=== PATIENT | female | born 1960 | race African-American/Black ===

== ENCOUNTER 2021-11-19 14:55 | Inpatient (IN) | payer OTHER ==
[2021-11-19] MEDS ORDERED: oxyCODONE HCL 5 MG TABLET PO PRN ×2 (18:04→18:12)
[2021-11-19] MEDS ORDERED: ACETAMINOPHEN 325 MG TABLET (FP) PO PRN ×2 (18:04→18:12)
[2021-11-19] MEDS ORDERED: ONDANSETRON 4 MG/2 ML VIAL IVPUSH PRN (18:07)
[2021-11-19 18:39] LABS: BASO % 0.3 % (0-2.0); EOS % 8.2 % (0-4.5); HEMATOCRIT 29.8 % (32.4-45.2); HEMOGLOBIN 9.7 GM/dL (10.7-15.3); LYMPH % 24.2 % (8-40); MCH 28.7 pg (25.7-33.7); MCHC 32.4 g/dl (32.0-36.0); MEAN CELL VOLUME 88.7 fl (80-96); MEAN PLT VOLUME 8.9 fl (7.5-11.1); MONO % 10.1 % (3.8-10.2); NEUT % 57.2 % (42.8-82.8); PLATELET COUNT 313 10^3/uL (134-434); RBC 3.36 M/mm3 (3.60-5.2); RDW 16.6 % (11.6-15.6); WHITE BLOOD COUNT 6.9 K/mm3 (4.0-10.0)
[2021-11-19 18:48] LABS: INR 1.17 (0.83-1.09); PROTHROMBIN TIME (PATIENT) 13.5 SEC (9.7-13.0)
[2021-11-19 18:51] LABS: ACTIVATED PTT 26.7 SECONDS (25.2-36.5)
[2021-11-19 18:58] LABS: ALBUMIN 2.9 g/dl (3.4-5.0); BLOOD UREA NITROGEN 14.8 mg/dL (7-18); CALCIUM 9.1 mg/dL (8.5-10.1)
[2021-11-19 19:01] LABS: CREATININE 1.5 mg/dL (0.55-1.3)
[2021-11-19 19:03] LABS: BILIRUBIN,TOTAL 0.3 mg/dL (0.2-1); TOT PROT 7.2 g/dl (6.4-8.2)
[2021-11-19] MEDS ORDERED: LACTATED RINGERS SOLUTION 1,000 ML/1,000 ML INFUS.BAG IV SCH (19:45)
[2021-11-19] MEDS ORDERED: ROSUVASTATIN CA 20 MG TABLET ONE (21:31)
[2021-11-19] MEDS ORDERED: PREGABALIN 50 MG CAPSULE ONE (21:31)
[2021-11-19] MEDS ORDERED: METOPROLOL TARTRATE 25 MG TABLET (FP) ONE (21:31)
[2021-11-19] MEDS ORDERED: CYCLOBENZAPRINE HCL 10 MG TABLET (FP) ONE (21:31)
[2021-11-19] MEDS ORDERED: PREGABALIN 100 MG CAPSULE ONE (21:31)
[2021-11-19] MEDS ORDERED: oxyCODONE HCL 5 MG TABLET ONE (21:32)
[2021-11-19] MEDS: oxyCODONE HCL 5 MG TABLET PO PRN (21:40)
[2021-11-19] MEDS: ROSUVASTATIN CA 10 MG TABLET PO SCH (21:48)
[2021-11-19] MEDS: PREGABALIN 50 MG CAPSULE PO SCH (21:49)
[2021-11-19] MEDS: CYCLOBENZAPRINE HCL 10 MG TABLET (FP) PO SCH (21:49)
[2021-11-19] MEDS: METOPROLOL TARTRATE 25 MG TABLET (FP) PO SCH (21:49)
[2021-11-19 22:17] LABS: EPI CELLS >36 /uL (0-25.1); HYALINE CASTS 9 /uL (0-3.1); URINE APPEARANCE CLOUDY; URINE BACTERIA 860 /uL (0-1359); URINE BILIRUBIN 1+ (NEGATIVE); URINE COLOR DK YELLOW; URINE GLUCOSE (UA) NEGATIVE (NEGATIVE); URINE KETONE TRACE (NEGATIVE); URINE LEUK ESTERASE 2+ (NEGATIVE); URINE NITRITE NEGATIVE (NEGATIVE); URINE PROTEIN TRACE (NEGATIVE); URINE WBC 350 /uL (0-25.8)
[2021-11-19 22:37] LABS: URINE CRYSTALS NONE SEEN /hpf; URINE RBC 25.3 /uL (0-23.9)
[2021-11-20 01:59] VITALS: BMI 34.1
[2021-11-20] MEDS ORDERED: ROCURONIUM BROMIDE 50 MG/5 ML SYRINGE ONE (07:05)
[2021-11-20] MEDS ORDERED: ONDANSETRON 4 MG/2 ML VIAL ONE (07:05)
[2021-11-20] MEDS ORDERED: PROPOFOL 20 ML ONE (07:05)
[2021-11-20] MEDS ORDERED: SUCCINYLCHOLINE CHLORIDE 200 MG/10 ML SYRINGE ONE (07:05)
[2021-11-20] MEDS ORDERED: LACTATED RINGERS SOLUTION 1,000 ML IV SCH (07:30)
[2021-11-20] MEDS ORDERED: METOPROLOL TARTRATE 25 MG TABLET (FP) PO ONE (08:01)
[2021-11-20] MEDS ORDERED: ACETAMINOPHEN INJECTION 100 ML IVPB ONE (08:02)
[2021-11-20] MEDS ORDERED: MIDAZOLAM HCL 2 MG/2 ML SINGLE DOSE VIAL ONE (08:05)
[2021-11-20] MEDS ORDERED: ceFAZolin SODIUM 1 GM VIAL ONE ×2 (08:08)
[2021-11-20] MEDS ORDERED: DEXAMETHASONE SOD PHOSPHATE 4 MG/1 ML VIAL ONE (08:08)
[2021-11-20] MEDS ORDERED: HYDROmorphone HCl 2 MG/ML VIAL ONE (09:21)
[2021-11-20] MEDS ORDERED: TRANEXAMIC ACID 1000 MG/10 ML VIAL ONE ×2 (09:30→09:33)
[2021-11-20] MEDS ORDERED: VANCOMYCIN 1,000 MG VIAL (RESTRICTED TO ID ONLY) ONE (09:39)
[2021-11-20] MEDS ORDERED: VANCOMYCIN 1 GM in NS (PRE-DOCKED) 1,000 MG/250 ML IVPB ONE (09:43)
[2021-11-20] MEDS ORDERED: ceFAZolin SODIUM 1 GM VIAL IVPB ONE (09:43)
[2021-11-20] MEDS ORDERED: GLYCOPYRROLATE 0.2 MG/1 ML VIAL ONE ×2 (09:48)
[2021-11-20] MEDS ORDERED: OXYCODONE MYRISTATE 9 MG PO SCH ×2 (11:30→23:30)
[2021-11-20] MEDS: LACTATED RINGERS SOLUTION 1,000 ML IV SCH (12:35)
[2021-11-20] MEDS: CEFAZOLIN SODIUM 2 GM in DEXTROSE 5%-WATER 100 ML IVPB SCH ×2 (14:23→22:22)
[2021-11-20] MEDS: CYCLOBENZAPRINE HCL 10 MG TABLET (FP) PO SCH ×3 (16:44→21:08)
[2021-11-20] MEDS: METOPROLOL TARTRATE 25 MG TABLET (FP) PO SCH ×3 (16:44→21:08)
[2021-11-20] MEDS: PREGABALIN 50 MG CAPSULE PO SCH ×3 (16:45→21:08)
[2021-11-20] MEDS: ACETAMINOPHEN 1000 MG/100 ML BAG IVPB PRN (20:53)
[2021-11-20] MEDS: ROSUVASTATIN CA 10 MG TABLET PO SCH ×2 (20:54→21:08)
[2021-11-21] MEDS: oxyCODONE HCL 5 MG TABLET PO PRN ×4 (01:56→22:23)
[2021-11-21] MEDS: CEFAZOLIN SODIUM 2 GM in DEXTROSE 5%-WATER 100 ML IVPB SCH (02:03)
[2021-11-21] MEDS: ACETAMINOPHEN 1000 MG/100 ML BAG IVPB PRN (06:17)
[2021-11-21] MEDS: LEVOTHYROXINE NA 100 MCG TABLET (FP) PO SCH (06:17)
[2021-11-21 08:02] LABS: BASO % 0.3 % (0-2.0); EOS % 2.1 % (0-4.5); HEMATOCRIT 23.9 % (32.4-45.2); HEMOGLOBIN 7.6 GM/dL (10.7-15.3); LYMPH % 28.3 % (8-40); MCH 28.2 pg (25.7-33.7); MCHC 31.9 g/dl (32.0-36.0); MEAN CELL VOLUME 88.2 fl (80-96); MEAN PLT VOLUME 8.7 fl (7.5-11.1); MONO % 10.8 % (3.8-10.2); NEUT % 58.5 % (42.8-82.8); PLATELET COUNT 232 10^3/uL (134-434); RBC 2.71 M/mm3 (3.60-5.2); RDW 16.2 % (11.6-15.6); WHITE BLOOD COUNT 5.6 K/mm3 (4.0-10.0)
[2021-11-21 08:23] LABS: CALCIUM 8.5 mg/dL (8.5-10.1)
[2021-11-21] MEDS: PREGABALIN 50 MG CAPSULE PO SCH ×2 (09:13→22:00)
[2021-11-21] MEDS: METOPROLOL TARTRATE 25 MG TABLET (FP) PO SCH ×2 (09:15→22:34)
[2021-11-21] MEDS: LACTATED RINGERS SOLUTION 1,000 ML IV SCH ×4 (09:51→18:42)
[2021-11-21] MEDS: CYCLOBENZAPRINE HCL 10 MG TABLET (FP) PO SCH ×2 (10:36→22:00)
[2021-11-21] MEDS ORDERED: LACTATED RINGERS SOLUTION 1,000 ML/1,000 ML INFUS.BAG IV SCH (22:00)
[2021-11-21] MEDS: ROSUVASTATIN CA 10 MG TABLET PO SCH (22:01)
[2021-11-22] MEDS: LEVOTHYROXINE NA 100 MCG TABLET (FP) PO SCH (06:43)
[2021-11-22] MEDS: oxyCODONE HCL 5 MG TABLET PO PRN ×2 (07:10→14:14)
[2021-11-22 09:21] LABS: BASO % 0.6 % (0-2.0); HEMATOCRIT 24.9 % (32.4-45.2); HEMOGLOBIN 8.2 GM/dL (10.7-15.3); LYMPH % 33.7 % (8-40); MCH 29.1 pg (25.7-33.7); MCHC 32.9 g/dl (32.0-36.0); MEAN CELL VOLUME 88.4 fl (80-96); MEAN PLT VOLUME 8.5 fl (7.5-11.1); MONO % 9.2 % (3.8-10.2); NEUT % 49.5 % (42.8-82.8); PLATELET COUNT 255 10^3/uL (134-434); RBC 2.82 M/mm3 (3.60-5.2); RDW 16.1 % (11.6-15.6); WHITE BLOOD COUNT 7.2 K/mm3 (4.0-10.0)
[2021-11-22 09:45] LABS: CALCIUM 8.8 mg/dL (8.5-10.1)
[2021-11-22 09:46] LABS: BLOOD UREA NITROGEN 11.9 mg/dL (7-18)
[2021-11-22 09:50] LABS: CREATININE 0.8 mg/dL (0.55-1.3)
[2021-11-22] MEDS: PREGABALIN 50 MG CAPSULE PO SCH ×2 (11:22→22:04)
[2021-11-22] MEDS: CYCLOBENZAPRINE HCL 10 MG TABLET (FP) PO SCH ×2 (11:22→22:04)
[2021-11-22] MEDS: METOPROLOL TARTRATE 25 MG TABLET (FP) PO SCH ×2 (11:23→22:03)
[2021-11-22] MEDS ORDERED: PATIENT'S OWN MEDICATION (NON-FORMULARY) (Linaclotide [Linzess] 290 MCG Capsule) PO SCH (11:45)
[2021-11-22] MEDS: LISINOPRIL 20 MG TABLET PO SCH (14:04)
[2021-11-22] MEDS: FUROSEMIDE 40 MG TABLET (FP) PO SCH (14:05)
[2021-11-22] MEDS: SPIRONOLACTONE 25 MG TABLET PO SCH (14:05)
[2021-11-22] MEDS: ROSUVASTATIN CA 10 MG TABLET PO SCH (22:04)
[2021-11-23] MEDS: oxyCODONE HCL 5 MG TABLET PO PRN ×3 (01:46→18:07)
[2021-11-23] MEDS: LEVOTHYROXINE NA 100 MCG TABLET (FP) PO SCH (06:43)
[2021-11-23 11:34] LABS: HEMATOCRIT 26.5 % (32.4-45.2); HEMOGLOBIN 8.8 GM/dL (10.7-15.3); MCH 29.3 pg (25.7-33.7); MEAN CELL VOLUME 88.6 fl (80-96); MEAN PLT VOLUME 8.5 fl (7.5-11.1); PLATELET COUNT 281 10^3/uL (134-434); RBC 2.99 M/mm3 (3.60-5.2); RDW 16.9 % (11.6-15.6); WHITE BLOOD COUNT 7.2 K/mm3 (4.0-10.0)
[2021-11-23 11:45] LABS: CALCIUM 9.1 mg/dL (8.5-10.1)
[2021-11-23 11:46] LABS: BLOOD UREA NITROGEN 8.4 mg/dL (7-18)
[2021-11-23 11:49] LABS: CREATININE 0.7 mg/dL (0.55-1.3)
[2021-11-23] MEDS: SPIRONOLACTONE 25 MG TABLET PO SCH (11:50)
[2021-11-23] MEDS: FUROSEMIDE 40 MG TABLET (FP) PO SCH (11:51)
[2021-11-23] MEDS: METOPROLOL TARTRATE 25 MG TABLET (FP) PO SCH ×3 (11:51→22:39)
[2021-11-23] MEDS: PREGABALIN 50 MG CAPSULE PO SCH ×2 (11:51→22:39)
[2021-11-23] MEDS: CYCLOBENZAPRINE HCL 10 MG TABLET (FP) PO SCH ×2 (11:51→22:39)
[2021-11-23] MEDS: LISINOPRIL 20 MG TABLET PO SCH (11:52)
[2021-11-23] MEDS ORDERED: LORazepam 2 MG TABLET PO ONE (12:00)
[2021-11-23] MEDS ORDERED: LORazepam 1 MG TABLET PO ONE (13:30)
[2021-11-23] MEDS: CEFAZOLIN SODIUM 2 GM in DEXTROSE 5%-WATER 100 ML IVPB SCH ×3 (14:02→22:39)
[2021-11-23] MEDS: ROSUVASTATIN CA 10 MG TABLET PO SCH (22:39)
[2021-11-24] MEDS: CEFAZOLIN SODIUM 2 GM in DEXTROSE 5%-WATER 100 ML IVPB SCH ×5 (03:02→22:12)
[2021-11-24] MEDS: LEVOTHYROXINE NA 100 MCG TABLET (FP) PO SCH (06:33)
[2021-11-24] MEDS: oxyCODONE HCL 5 MG TABLET PO PRN ×2 (09:15→21:28)
[2021-11-24] MEDS: PREGABALIN 50 MG CAPSULE PO SCH ×2 (09:18→22:12)
[2021-11-24] MEDS: LISINOPRIL 20 MG TABLET PO SCH (09:18)
[2021-11-24] MEDS: FUROSEMIDE 40 MG TABLET (FP) PO SCH (09:18)
[2021-11-24] MEDS: METOPROLOL TARTRATE 25 MG TABLET (FP) PO SCH ×2 (09:19→22:13)
[2021-11-24] MEDS: SPIRONOLACTONE 25 MG TABLET PO SCH (09:19)
[2021-11-24] MEDS: CYCLOBENZAPRINE HCL 10 MG TABLET (FP) PO SCH ×2 (09:19→22:12)
[2021-11-24 10:46] LABS: HEMATOCRIT 25.4 % (32.4-45.2); HEMOGLOBIN 8.3 GM/dL (10.7-15.3); MCH 28.8 pg (25.7-33.7); MCHC 32.7 g/dl (32.0-36.0); MEAN CELL VOLUME 87.9 fl (80-96); MEAN PLT VOLUME 9.2 fl (7.5-11.1); PLATELET COUNT 272 10^3/uL (134-434); RBC 2.89 M/mm3 (3.60-5.2); RDW 16.6 % (11.6-15.6); WHITE BLOOD COUNT 7.3 K/mm3 (4.0-10.0)
[2021-11-24 11:04] LABS: ALBUMIN 2.6 g/dl (3.4-5.0); BLOOD UREA NITROGEN 9.8 mg/dL (7-18); MAGNESIUM 2.3 mg/dL (1.8-2.4)
[2021-11-24 11:07] LABS: CREATININE 0.7 mg/dL (0.55-1.3); PHOSPHOROUS 3.9 mg/dL (2.5-4.9)
[2021-11-24 11:10] LABS: BILIRUBIN,TOTAL 0.4 mg/dL (0.2-1); TOT PROT 6.5 g/dl (6.4-8.2)
[2021-11-24] MEDS ORDERED: ACETAMINOPHEN 325 MG TABLET (FP) PO PRN (14:15)
[2021-11-24] MEDS ORDERED: MIDAZOLAM HCL 2 MG/2 ML SINGLE DOSE VIAL ONE (14:55)
[2021-11-24] MEDS ORDERED: ONDANSETRON 4 MG/2 ML VIAL IVPUSH PRN (15:07)
[2021-11-24] MEDS ORDERED: ROCURONIUM BROMIDE 50 MG/5 ML SYRINGE ONE (15:13)
[2021-11-24] MEDS ORDERED: LACTATED RINGERS SOLUTION 1,000 ML IV SCH (15:15)
[2021-11-24] MEDS: ROSUVASTATIN CA 10 MG TABLET PO SCH (22:12)
[2021-11-25] MEDS: CEFAZOLIN SODIUM 2 GM in DEXTROSE 5%-WATER 100 ML IVPB SCH ×4 (04:09→21:06)
[2021-11-25] MEDS: LEVOTHYROXINE NA 100 MCG TABLET (FP) PO SCH (06:07)
[2021-11-25 11:33] LABS: HEMATOCRIT 28.3 % (32.4-45.2); MCH 28.4 pg (25.7-33.7); MCHC 31.8 g/dl (32.0-36.0); MEAN CELL VOLUME 89.3 fl (80-96); MEAN PLT VOLUME 9.3 fl (7.5-11.1); PLATELET COUNT 291 10^3/uL (134-434); RBC 3.17 M/mm3 (3.60-5.2); RDW 16.2 % (11.6-15.6); WHITE BLOOD COUNT 7.5 K/mm3 (4.0-10.0)
[2021-11-25] MEDS: METOPROLOL TARTRATE 25 MG TABLET (FP) PO SCH ×2 (12:04→21:52)
[2021-11-25] MEDS: PREGABALIN 50 MG CAPSULE PO SCH ×2 (12:04→21:52)
[2021-11-25] MEDS: CYCLOBENZAPRINE HCL 10 MG TABLET (FP) PO SCH ×2 (12:04→21:52)
[2021-11-25] MEDS: SPIRONOLACTONE 25 MG TABLET PO SCH (12:05)
[2021-11-25] MEDS: LISINOPRIL 20 MG TABLET PO SCH (12:05)
[2021-11-25 12:06] LABS: ALBUMIN 2.8 g/dl (3.4-5.0); BLOOD UREA NITROGEN 10.8 mg/dL (7-18); CALCIUM 9.2 mg/dL (8.5-10.1)
[2021-11-25 12:09] LABS: CREATININE 0.8 mg/dL (0.55-1.3)
[2021-11-25 12:11] LABS: BILIRUBIN,TOTAL 0.4 mg/dL (0.2-1); TOT PROT 6.8 g/dl (6.4-8.2)
[2021-11-25] MEDS: oxyCODONE HCL 5 MG TABLET PO PRN (16:07)
[2021-11-25] MEDS ORDERED: SPIRONOLACTONE 25 MG TABLET PO SCH (17:30)
[2021-11-25] MEDS ORDERED: LISINOPRIL 20 MG TABLET PO SCH (17:31)
[2021-11-25 17:51] LABS: N-TERMINAL BNP 170.5 pg/ml (5-125)
[2021-11-25] MEDS: ROSUVASTATIN CA 10 MG TABLET PO SCH (21:52)
[2021-11-26] MEDS: CEFAZOLIN SODIUM 2 GM in DEXTROSE 5%-WATER 100 ML IVPB SCH ×4 (02:50→21:40)
[2021-11-26] MEDS: LEVOTHYROXINE NA 100 MCG TABLET (FP) PO SCH (06:50)
[2021-11-26 10:22] LABS: HEMATOCRIT 25.3 % (32.4-45.2); HEMOGLOBIN 8.3 GM/dL (10.7-15.3); MCH 29.2 pg (25.7-33.7); MCHC 32.8 g/dl (32.0-36.0); MEAN CELL VOLUME 88.9 fl (80-96); PLATELET COUNT 272 10^3/uL (134-434); RBC 2.84 M/mm3 (3.60-5.2); RDW 16.7 % (11.6-15.6); WHITE BLOOD COUNT 7.5 K/mm3 (4.0-10.0)
[2021-11-26 10:46] LABS: CALCIUM 8.9 mg/dL (8.5-10.1)
[2021-11-26 10:47] LABS: ALBUMIN 2.7 g/dl (3.4-5.0); BLOOD UREA NITROGEN 14.8 mg/dL (7-18)
[2021-11-26 10:50] LABS: CREATININE 1.1 mg/dL (0.55-1.3)
[2021-11-26 10:51] LABS: BILIRUBIN,TOTAL 0.4 mg/dL (0.2-1); TOT PROT 6.5 g/dl (6.4-8.2)
[2021-11-26] MEDS ORDERED: DEXTROSE 5%-NORMAL SALINE 1,000 ML IV SCH ×2 (12:00→19:14)
[2021-11-26] MEDS: CYCLOBENZAPRINE HCL 10 MG TABLET (FP) PO SCH ×2 (12:34→21:40)
[2021-11-26] MEDS: METOPROLOL TARTRATE 25 MG TABLET (FP) PO SCH ×2 (12:35→21:40)
[2021-11-26] MEDS: PREGABALIN 50 MG CAPSULE PO SCH ×2 (12:35→21:40)
[2021-11-26] MEDS ORDERED: PROPOFOL 40 ML ONE (15:42)
[2021-11-26] MEDS ORDERED: SUCCINYLCHOLINE CHLORIDE 200 MG/10 ML SYRINGE ONE (15:43)
[2021-11-26] MEDS ORDERED: MIDAZOLAM HCL 2 MG/2 ML SINGLE DOSE VIAL ONE (17:14)
[2021-11-26] MEDS ORDERED: ceFAZolin SODIUM 1 GM VIAL IVPB ONE (17:35)
[2021-11-26] MEDS ORDERED: ROCURONIUM BROMIDE 50 MG/5 ML SYRINGE ONE (17:38)
[2021-11-26] MEDS ORDERED: HYDROmorphone HCl 2 MG/ML VIAL ONE (18:21)
[2021-11-26] MEDS ORDERED: ONDANSETRON 4 MG/2 ML VIAL IVPUSH PRN ×2 (19:05→19:14)
[2021-11-26] MEDS ORDERED: oxyCODONE HCL 5 MG TABLET PO PRN ×2 (19:05→19:14)
[2021-11-26] MEDS ORDERED: ACETAMINOPHEN 325 MG TABLET (FP) PO PRN (19:14)
[2021-11-26] MEDS ORDERED: LACTATED RINGERS SOLUTION 1,000 ML IV SCH (19:15)
[2021-11-26] MEDS ORDERED: ROSUVASTATIN CA 10 MG TABLET PO SCH (22:00)
[2021-11-27 01:47] VITALS: RESP 18
[2021-11-27] MEDS: CEFAZOLIN SODIUM 2 GM in DEXTROSE 5%-WATER 100 ML IVPB SCH ×3 (02:57→14:35)
[2021-11-27] MEDS ORDERED: LEVOTHYROXINE NA 100 MCG TABLET (FP) PO SCH (07:00)
[2021-11-27] MEDS ORDERED: SIMETHICONE 80 MG TAB.CHEW (FP) PO PRN (08:50)
[2021-11-27] MEDS: POLYETHYLENE GLYCOL (HEALTHYLAX) 3350 17 GM PACKET PO SCH ×2 (09:04→09:44)
[2021-11-27 09:36] LABS: HEMATOCRIT 28.3 % (32.4-45.2); HEMOGLOBIN 9.1 GM/dL (10.7-15.3); MCH 28.5 pg (25.7-33.7); MCHC 31.9 g/dl (32.0-36.0); MEAN CELL VOLUME 89.2 fl (80-96); MEAN PLT VOLUME 8.8 fl (7.5-11.1); PLATELET COUNT 365 10^3/uL (134-434); RBC 3.18 M/mm3 (3.60-5.2); WHITE BLOOD COUNT 6.4 K/mm3 (4.0-10.0)
[2021-11-27] MEDS: PREGABALIN 50 MG CAPSULE PO SCH (09:43)
[2021-11-27] MEDS: CYCLOBENZAPRINE HCL 10 MG TABLET (FP) PO SCH (09:43)
[2021-11-27] MEDS ORDERED: SPIRONOLACTONE 25 MG TABLET PO SCH (10:00)
[2021-11-27] MEDS ORDERED: LISINOPRIL 20 MG TABLET PO SCH (10:00)
[2021-11-27 10:09] LABS: CALCIUM 9.2 mg/dL (8.5-10.1)
[2021-11-27 10:11] LABS: ALBUMIN 2.8 g/dl (3.4-5.0); BLOOD UREA NITROGEN 11.6 mg/dL (7-18)
[2021-11-27 10:15] LABS: CREATININE 0.9 mg/dL (0.55-1.3); TOT PROT 7.2 g/dl (6.4-8.2)
[2021-11-27 10:17] LABS: BILIRUBIN,TOTAL 0.4 mg/dL (0.2-1)
[2021-11-27] MEDS: METOPROLOL TARTRATE 25 MG TABLET (FP) PO SCH (10:53)
[2021-11-27 15:00] VITALS: BP 129/76; PULSE 84; TEMP 97.3
== END 2021-11-27 18:38 | disposition home or self-care (01) | DRG 902 ==
LOC: JOR 14:55 → JERBED 16:21 → UNDOADMOB 16:21 → JASUSAT 18:06 → UNDOADMIN 18:06 → JERBED 18:06 → J5S 23:25 → JASUSAT 11-20 15:24 → J5S 11-20 15:25
PROVIDERS: ADMIT Orthopaedic Surgery Adult Reconstructive Orthopaedic Surgery; ATTEND Internal Medicine
PROC: 0J9700Z Drainage of Back Subcutaneous Tissue and Fascia with Drainage Device, Open Approach (ICD-10-PCS; principal; 2021-11-20 08:00)
PROC: 0JB70ZZ Excision of Back Subcutaneous Tissue and Fascia, Open Approach (ICD-10-PCS; 2021-11-26)
PROC: 2W55X6Z Removal of Pressure Dressing on Back (ICD-10-PCS; 2021-11-26)
PROC: 0J9700Z Drainage of Back Subcutaneous Tissue and Fascia with Drainage Device, Open Approach (ICD-10-PCS; 2021-11-26)
PROC: 02HV33Z Insertion of Infusion Device into Superior Vena Cava, Percutaneous Approach (ICD-10-PCS; 2021-11-27)
PROC: B548ZZA Ultrasonography of Superior Vena Cava, Guidance (ICD-10-PCS; 2021-11-27)
DX: T81.32XA Disruption of internal operation (surgical) wound, not elsewhere classified, initial encounter (principal); F11.20 Opioid dependence, uncomplicated; N17.9 Acute kidney failure, unspecified; I10 Essential (primary) hypertension; Y83.8 Other surgical procedures as the cause of abnormal reaction of the patient, or of later complication, without mention of misadventure at the time of the procedure; E66.9 Obesity, unspecified; E78.5 Hyperlipidemia, unspecified; D63.8 Anemia in other chronic diseases classified elsewhere; I12.9 Hypertensive chronic kidney disease with stage 1 through stage 4 chronic kidney disease, or unspecified chronic kidney disease; N18.9 Chronic kidney disease, unspecified; R07.89 Other chest pain; E03.9 Hypothyroidism, unspecified; F41.9 Anxiety disorder, unspecified; K58.9 Irritable bowel syndrome, unspecified; I35.0 Nonrheumatic aortic (valve) stenosis
CPT/HCPCS: 36415; 36569; 71046-TC-FY; 77001-TC-FY; 80048; 80053; 80061; 81003; 82436; 82570; 82728; 83036; 83540; 83550; 83735; 83880; 84100; 84133; 84300; 84439; 84443; 84484; 85025; 85027; 85610; 85651; 85730; 87040; 87070; 87086; 87186; 87205; 93005; 93010; 93306-TC; 94010; 94760; 97116-GP; 97161-GP; 99285-25; C1751; C9803-CS; U0003; U0005